=== PATIENT | female | born 1960 | race African-American/Black ===

== ENCOUNTER 2020-03-23 08:04 | Inpatient (IN) | payer OTHER ==
[~2020-03-23] VITALS: Ht 167.6 cm; Wt 115.2 kg
[2020-03-23] MEDS ORDERED: PROPOFOL 1000 MG/ISO-OSM 100 ML IV ONE (08:16)
[2020-03-23] MEDS ORDERED: PROPOFOL 1000 MG/ISO-OSM 100 ML IV PRN (08:30)
[2020-03-23] MEDS ORDERED: SODIUM CHLORIDE 0.9% 1,000 ML IV ONE ×5 (08:30→11:15)
[2020-03-23 08:51] LABS: APPEARANCE,URINE TURBID (CLEAR); GLUCOSE, URINE (UA) NEGATIVE (NEGATIVE); KETONES,URINE NEGATIVE (NEGATIVE); LEUKOCYTE ESTERASE ,URINE LARGE (NEGATIVE); NITRATE,URINE NEGATIVE (NEGATIVE); OCCULT BLOOD,URINE MODERATE (NEGATIVE); PROTEIN,URINE NEGATIVE (NEGATIVE); UROBILINOGEN,URINE 0.2 mg/dL (<=1.0)
[2020-03-23 08:51] LABS: ANION GAP 18 mmol/L (8-16); CALCIUM, TOTAL 9.1 mg/dL (8.8-10.5); CARBON DIOXIDE 21 mmol/L (22-29); CHLORIDE 95 mmol/L (98-107); CREATININE 4.83 mg/dL (0.60-1.30); GLOMERULAR FILTR. RATE CALC 11 mL/min (>60); GLUCOSE,RANDOM 336 mg/dL (70-110); HEMATOCRIT 25.8 % (36-46); HEMOGLOBIN 7.4 g/dL (12.0-16.0); MEAN CORPUSCULAR HEMOGLOBIN 23.8 pg (26.0-34.0); MEAN CORPUSCULAR HGB CONC 28.8 G/dL (31.0-37.0); MEAN CORPUSCULAR VOLUME 83 fL (80-100); PLATELET COUNT (AUTO) 309 K/uL (150-450); POTASSIUM 4.7 mmol/L (3.5-5.1); RED BLOOD CELL COUNT(AUTO) 3.13 MIL/uL (4.00-5.20); RED CELL DISTRIBUTION WIDTH 23.3 % (11.5-14.5); SODIUM SERUM 134 mmol/L (136-145); UREA NITROGEN, BLOOD 70 mg/dL (7-18)
[2020-03-23 08:53] LABS: INR 1.4 (0.9-1.1); PROTHROMBIN TIME 14.3 SEC (9.4-11.6)
[2020-03-23 08:56] LABS: AMPHET/METH SCREEN,URINE NEGATIVE (NEGATIVE); BARBITURATE SCREEN, URINE NEGATIVE (NEGATIVE); BENZODIAZEPINES SCREEN,URINE NEGATIVE (NEGATIVE); CANNABINOID SCREEN,URINE NEGATIVE (NEGATIVE); COCAINE SCREEN,URINE NEGATIVE (NEGATIVE); METHADONE SCREEN, URINE NEGATIVE (NEGATIVE); OPIATE SCREEN,URINE NEGATIVE (NEGATIVE)
[2020-03-23 08:58] LABS: ALBUMIN 1.2 g/dL (3.4-5.0); ALKALINE PHOSPHATASE 167 U/L (46-116); ASPARTATE AMINOTRANSFERASE 27 U/L (15-37); BILIRUBIN,TOTAL 0.4 mg/dL (0.1-1.0); LIPASE 16 U/L (73-393); TOTAL PROTEIN, SERUM 6.5 g/dL (6.4-8.2)
[2020-03-23 08:59] LABS: ACETAMINOPHEN < 2 mcg/mL (10-30); AMMONIA 25 umol/L (11-32); TROPONIN I < 0.02 ng/mL (0.00-0.05)
[2020-03-23 08:59] LABS: PHENCYCLIDINE SCREEN,URINE NEGATIVE (NEGATIVE)
[2020-03-23 09:07] LABS: BILIRUBIN,URINE PRELIM. POSITIVE (NEGATIVE)
[2020-03-23 09:14] LABS: SALICYLATE 1.9 mg/dL (2.8-20.0)
[2020-03-23 09:19] LABS: B-TYPE NATRIURETIC PEPTIDE 173 pg/mL (0-100)
[2020-03-23 09:19] LABS: BACTERIA,URINE Moderate /HPF (None Seen); YEAST,URINE Many /HPF (None Seen)
[2020-03-23 09:25] LABS: BAND NEUTROPHILS % (MANUAL) 21 % (0-5); LYMPHOCYTES % (MANUAL) 12 % (22-44); METAMYELOCYTES % 2 % (0-0); MONOCYTES % (MANUAL) 4 % (2-9); SEGMENTED NEUTROPHILS % 61 % (40-70)
[2020-03-23 09:30] LABS: ALANINE AMINOTRANSFERASE 10 U/L (12-78)
[2020-03-23] MEDS ORDERED: VANCOMYCIN HCL 1 GM/D5% WATER 200 ML IV ONE (09:30)
[2020-03-23 09:35] LABS: LACTIC ACID 13.3 mmol/L (0.4-2.0)
[2020-03-23] MEDS ORDERED: PIPERACILLIN/TAZO 3.375 GM/D5W 50 ML IV ONE (10:00)
[2020-03-23] MEDS ORDERED: NOREPINEPHRINE BITARTRATE 8 MG in DEXTROSE 5%-WATER 242 ML IV PRN (10:15)
[2020-03-23] MEDS: NOREPINEPHRINE 4 MG/D5%-WATER 250 ML IV PRN ×3 (11:08→22:06)
[2020-03-23] MEDS ORDERED: ROCURONIUM BROMIDE 10 MG/ML 5 ML VIAL ONE (11:08)
[2020-03-23] MEDS ORDERED: ONDANSETRON HCL 4 MG/2 ML VIAL IVP PRN (11:15)
[2020-03-23] MEDS ORDERED: MORPHINE SULFATE 2 MG/ML SYRINGE IVP PRN (11:15)
[2020-03-23] MEDS ORDERED: DEXTROSE 50%-WATER 25 GM/50 ML SYRINGE IVP PRN ×2 (11:15→20:15)
[2020-03-23] MEDS ORDERED: INSULIN LISPRO 100 UNITS/ML SQ PRN (11:15)
[2020-03-23 11:52] LABS: COVID AG,FIA SOURCE NASOPHARYNGEAL
[2020-03-23] MEDS ORDERED: VANCOMYCIN HCL 1 GM/D5% WATER 200 ML IV PRN (12:00)
[2020-03-23] MEDS ORDERED: CefTRIAXone SODIUM 2 GM in DEXTROSE 5%-WATER 50 ML IV SCH (12:00)
[2020-03-23] MEDS: FentaNYL CITRATE PF 500 MCG in DEXTROSE 5%-WATER 90 ML IV PRN ×2 (12:16→23:12)
[2020-03-23 12:28] LABS: INFLUENZA TYPE A NEGATIVE FOR TYPE A (NEGATIVE); INFLUENZA TYPE B NEGATIVE FOR TYPE B (NEGATIVE)
[2020-03-23] MEDS: MIDAZOLAM HCL 100 MG in DEXTROSE 5%-WATER 180 ML IV PRN (12:39)
[2020-03-23 12:55] LABS: BILIRUBIN,TOTAL 0.5 mg/dL (0.1-1.0); CALCIUM, TOTAL 7.8 mg/dL (8.8-10.5); CREATININE 4.1 mg/dL (0.60-1.30); MAGNESIUM 1.3 mg/dL (1.80-2.40); PHOSPHORUS 5.2 mg/dL (2.5-4.9); POTASSIUM 4.7 mmol/L (3.5-5.1); TOTAL PROTEIN, SERUM 5.5 g/dL (6.4-8.2)
[2020-03-23 12:57] LABS: ABG A-A DIFF O2 249.1 mmHg (10-20.0); ABG BASE EXCESS -1.7 mmol/L (-2.0-3.0); ABG CARBOXYHEMOGLOBIN 0.4 % (0.0-1.5); ABG HCO3 23.1 mmol/L (22.0-26.0); ABG METHEMOGLOBIN 0.2 % (0.0-1.5); ABG OXYGEN CONTENT 11.8 mL/dL (15.0-23.0); ABG OXYGEN SATURATION 99.7 % (95.0-98.0); ABG OXYHEMOGLOBIN 99.1 % (94.0-100.0); ABG PCO2 44 mmHg (35-45); ABG PH 7.354 (7.35-7.450); PO2, ARTERIAL BG 423.2 mmHg (79.0-87.0); TEMPERATURE, FAHRENHEIT, BG 96.4 FAHREN (96.0-98.6)
[2020-03-23 12:58] LABS: ABG TOTAL HEMOGLOBIN 7.6 G/dL (12.0-18.0); O2 DEVICE,BLOOD GAS VENTILATOR (ROOM AIR); PEEP,BG 5 cm H2O; SITE, BLOOD GAS RT BRACHIAL; SOURCE, BLOOD GAS ARTERIAL; VT, ABG 500 ml
[2020-03-23 12:59] LABS: SPONTANEOUS VT, BG 493 ml
[2020-03-23] MEDS: PANTOPRAZOLE SODIUM 40 MG/VIAL IVP SCH (13:16)
[2020-03-23] MEDS: DOXYCYCLINE HYCLATE 100 MG in DEXTROSE 5%-WATER 100 ML IV SCH (13:34)
[2020-03-23] MEDS ORDERED: INSULIN LISPRO 100 UNITS/ML SQ ONE ×2 (14:15→20:15)
[2020-03-23 16:00] VITALS: BP 108/62
[2020-03-23] MEDS ORDERED: LEVOFLOXACIN 750 MG/D5% WATER 150 ML IV ONE (17:15)
[2020-03-23] MEDS ORDERED: *CLINICAL-RX DOSING [ENTER DRUG IN COMMENTS] CLINICAL ONE (17:15)
[2020-03-23] MEDS ORDERED: PIPERACILLIN SODIUM/TAZOBACTAM 2.25 GM in DEXTROSE 5%-WATER 50 ML IV SCH (18:00)
[2020-03-23 18:35] LABS: GLUCOSE,POINT OF CARE 357 MG/DL (70-110)
[2020-03-23 19:14] LABS: HEMATOCRIT 25.4 % (36-46); HEMOGLOBIN 7.5 g/dL (12.0-16.0)
[2020-03-23 19:30] LABS: ALBUMIN 1.2 g/dL (3.4-5.0); BILIRUBIN,TOTAL 0.5 mg/dL (0.1-1.0); CALCIUM, TOTAL 8.3 mg/dL (8.8-10.5); CREATININE 4.25 mg/dL (0.60-1.30); MAGNESIUM 1.4 mg/dL (1.80-2.40); POTASSIUM 4.9 mmol/L (3.5-5.1); TOTAL PROTEIN, SERUM 6.5 g/dL (6.4-8.2)
[2020-03-23 20:00] VITALS: BP 111/63
[2020-03-23] MEDS: HEPARIN SODIUM,PORCINE 5,000 UNITS/ML VIAL SQ SCH (20:09)
[2020-03-23] MEDS: DOCUSATE SODIUM 100 MG CAPSULE PO SCH (20:10)
[2020-03-23] MEDS: MEROPENEM 1 GM in SODIUM CHLORIDE 0.9% 100 ML IV SCH (20:12)
[2020-03-23 21:26] LABS: ABG A-A DIFF O2 141.8 mmHg (10-20.0); ABG BASE EXCESS -0.2 mmol/L (-2.0-3.0); ABG CARBOXYHEMOGLOBIN 0.6 % (0.0-1.5); ABG HCO3 24.4 mmol/L (22.0-26.0); ABG METHEMOGLOBIN 0.3 % (0.0-1.5); ABG OXYGEN CONTENT 11.2 mL/dL (15.0-23.0); ABG OXYGEN SATURATION 99.6 % (95.0-98.0); ABG OXYHEMOGLOBIN 98.7 % (94.0-100.0); ABG PCO2 40 mmHg (35-45); ABG PH 7.403 (7.35-7.450); PO2, ARTERIAL BG 169.4 mmHg (79.0-87.0); SOURCE, BLOOD GAS ARTERIAL; TEMPERATURE, FAHRENHEIT, BG 98.6 FAHREN (96.0-98.6)
[2020-03-23 21:27] LABS: ABG TOTAL HEMOGLOBIN 7.8 G/dL (12.0-18.0)
[2020-03-23 21:28] LABS: PEEP,BG 5 cm H2O; SITE, BLOOD GAS LFT RADIAL; VT, ABG 500 ml
[2020-03-23 22:27] LABS: CREATININE,URINE RANDOM 206.6 mg/dL (30.0-125.0)
[2020-03-24] VITALS (13 sets, daily range): BP systolic 92–113; BP diastolic 51–62
[2020-03-24] MEDS: DOXYCYCLINE HYCLATE 100 MG in DEXTROSE 5%-WATER 100 ML IV SCH ×2 (00:01→12:03)
[2020-03-24] MEDS: INSULIN LISPRO 100 UNITS/ML SQ PRN ×4 (00:20→17:26)
[2020-03-24] MEDS ORDERED: NOREPINEPHRINE 4 MG/D5%-WATER 250 ML IV ONE (02:50)
[2020-03-24] MEDS: NOREPINEPHRINE 4 MG/D5%-WATER 250 ML IV PRN ×5 (03:08→22:34)
[2020-03-24 04:26] LABS: GLUCOSE,POINT OF CARE 320 MG/DL (70-110)
[2020-03-24] MEDS: ACETAMINOPHEN 325 MG TABLET PO PRN (05:40)
[2020-03-24 06:03] LABS: ALBUMIN 0.9 g/dL (3.4-5.0); BILIRUBIN,TOTAL 0.3 mg/dL (0.1-1.0); CALCIUM, TOTAL 8.2 mg/dL (8.8-10.5); CREATININE 3.99 mg/dL (0.60-1.30); MAGNESIUM 1.4 mg/dL (1.80-2.40); POTASSIUM 4.3 mmol/L (3.5-5.1)
[2020-03-24 06:10] LABS: BASOPHILS % (AUTO) 0.2 % (0.0-2.0); EOSINOPHILS % (AUTO) 0.8 % (1.0-6.0); HEMATOCRIT 22.9 % (36-46); LYMPHOCYTES % (AUTO) 4.2 % (22.0-44.0); MEAN CORPUSCULAR HEMOGLOBIN 23.7 pg (26.0-34.0); MEAN CORPUSCULAR HGB CONC 30.5 G/dL (31.0-37.0); MEAN CORPUSCULAR VOLUME 78 fL (80-100); MONOCYTES # (AUTO) 0.5 K/uL (0.1-1.0); MONOCYTES % (AUTO) 2.3 % (2.0-9.0); NEUTROPHILS # (AUTO) 20.9 K/uL (1.8-7.7); PLATELET COUNT (AUTO) 272 K/uL (150-450); RED BLOOD CELL COUNT(AUTO) 2.96 MIL/uL (4.00-5.20); RED CELL DISTRIBUTION WIDTH 23.1 % (11.5-14.5)
[2020-03-24 06:12] LABS: GLUCOSE,POINT OF CARE 346 MG/DL (70-110)
[2020-03-24 06:12] LABS: NEUTROPHILS % (AUTO) 92.5 % (40.0-70.0)
[2020-03-24] MEDS ORDERED: MAGNESIUM OXIDE 400 MG TABLET PO ONE (06:30)
[2020-03-24] MEDS: MEROPENEM 1 GM in SODIUM CHLORIDE 0.9% 100 ML IV SCH ×2 (06:31→21:16)
[2020-03-24 07:00] LABS: C-REACTIVE PROTEIN QUANT 38.89 mg/dL (0.00-0.30)
[2020-03-24] MEDS ORDERED: VANCOMYCIN HCL 1 GM/D5% WATER 200 ML IV ONE (08:00)
[2020-03-24] MEDS: INSULIN GLARGINE,HUM.REC.ANLOG 100 UNITS/ML SQ SCH (08:32)
[2020-03-24] MEDS: HEPARIN SODIUM,PORCINE 5,000 UNITS/ML VIAL SQ SCH ×2 (08:37→20:07)
[2020-03-24] MEDS: PANTOPRAZOLE SODIUM 40 MG/VIAL IVP SCH (08:37)
[2020-03-24] MEDS: DOCUSATE SODIUM 100 MG CAPSULE PO SCH ×2 (08:38→20:07)
[2020-03-24] MEDS ORDERED: WATER FOR INJECTION STERILE IV ONE (09:00)
[2020-03-24] MEDS ORDERED: MAGNESIUM SULFATE IV ONE (09:00)
[2020-03-24] MEDS: ALBUMIN HUMAN 25%-25GM/100ML 100 ML IV SCH ×2 (09:29→20:07)
[2020-03-24] MEDS ORDERED: SODIUM CHLORIDE 0.9% 250 ML IV ONE ×2 (09:35→15:02)
[2020-03-24] MEDS: FentaNYL CITRATE PF 500 MCG in DEXTROSE 5%-WATER 90 ML IV PRN ×3 (13:15→22:34)
[2020-03-24] MEDS ORDERED: MAGNESIUM SULFATE 3 GM in DEXTROSE 5%-WATER 100 ML IV ONE (14:30)
[2020-03-24] MEDS: MIDAZOLAM HCL 100 MG in DEXTROSE 5%-WATER 180 ML IV PRN (17:13)
[2020-03-24 17:46] LABS: GLUCOSE,POINT OF CARE 304 MG/DL (70-110)
[2020-03-24 17:46] LABS: GLUCOSE,POINT OF CARE 300 MG/DL (70-110)
[2020-03-24 17:46] LABS: GLUCOSE,POINT OF CARE 272 MG/DL (70-110)
[2020-03-25] MEDS: INSULIN LISPRO 100 UNITS/ML SQ PRN ×5 (00:07→20:00)
[2020-03-25 00:11] VITALS: BP 104/49
[2020-03-25 02:11] LABS: GLUCOSE,POINT OF CARE 355 MG/DL (70-110)
[2020-03-25] MEDS: FentaNYL CITRATE PF 500 MCG in DEXTROSE 5%-WATER 90 ML IV PRN ×2 (03:54→14:16)
[2020-03-25 04:04] VITALS: BP 99/53
[2020-03-25 05:35] LABS: GLUCOSE,POINT OF CARE 328 MG/DL (70-110)
[2020-03-25] MEDS: NOREPINEPHRINE 4 MG/D5%-WATER 250 ML IV PRN ×4 (05:41→22:14)
[2020-03-25 06:25] LABS: HEMATOCRIT 25.4 % (36-46); HEMOGLOBIN 7.8 g/dL (12.0-16.0); MEAN CORPUSCULAR HEMOGLOBIN 24.1 pg (26.0-34.0); MEAN CORPUSCULAR HGB CONC 30.7 G/dL (31.0-37.0); MEAN CORPUSCULAR VOLUME 79 fL (80-100); PLATELET COUNT (AUTO) 195 K/uL (150-450); RED BLOOD CELL COUNT(AUTO) 3.24 MIL/uL (4.00-5.20); RED CELL DISTRIBUTION WIDTH 21.5 % (11.5-14.5)
[2020-03-25 07:28] LABS: ALBUMIN 1.6 g/dL (3.4-5.0); BILIRUBIN,TOTAL 0.5 mg/dL (0.1-1.0); CALCIUM, TOTAL 8.7 mg/dL (8.8-10.5); CREATININE 3.71 mg/dL (0.60-1.30); POTASSIUM 3.9 mmol/L (3.5-5.1); TOTAL PROTEIN, SERUM 5.8 g/dL (6.4-8.2)
[2020-03-25 07:57] LABS: GLUCOSE,POINT OF CARE 325 MG/DL (70-110)
[2020-03-25 08:00] VITALS: BP 102/56
[2020-03-25 08:01] LABS: BAND NEUTROPHILS % (MANUAL) 20 % (0-5); EOSINOPHILS % (MANUAL) 2 % (1-6); LYMPHOCYTES % (MANUAL) 5 % (22-44); METAMYELOCYTES % 2 % (0-0); MONOCYTES % (MANUAL) 4 % (2-9); SEGMENTED NEUTROPHILS % 67 % (40-70)
[2020-03-25 08:03] LABS: C-REACTIVE PROTEIN QUANT 29.58 mg/dL (0.00-0.30)
[2020-03-25] MEDS: ALBUMIN HUMAN 25%-25GM/100ML 100 ML IV SCH ×2 (08:04→20:01)
[2020-03-25] MEDS: INSULIN GLARGINE,HUM.REC.ANLOG 100 UNITS/ML SQ SCH ×2 (08:04→20:00)
[2020-03-25] MEDS: HEPARIN SODIUM,PORCINE 5,000 UNITS/ML VIAL SQ SCH ×2 (08:09→20:00)
[2020-03-25] MEDS: PANTOPRAZOLE SODIUM 40 MG/VIAL IVP SCH (08:09)
[2020-03-25 08:36] LABS: MAGNESIUM 1.8 mg/dL (1.80-2.40)
[2020-03-25] MEDS: MEROPENEM 1 GM in SODIUM CHLORIDE 0.9% 100 ML IV SCH ×2 (09:24→22:11)
[2020-03-25] MEDS: DOCUSATE SODIUM 100 MG CAPSULE PO SCH ×2 (09:24→20:00)
[2020-03-25 12:00] VITALS: BP 135/58
[2020-03-25] MEDS: ACETAMINOPHEN 325 MG TABLET PO PRN ×2 (15:36→19:58)
[2020-03-25 16:00] VITALS: BP 97/51
[2020-03-25 16:48] LABS: ABG A-A DIFF O2 100.9 mmHg (10-20.0); ABG BASE EXCESS 1.4 mmol/L (-2.0-3.0); ABG CARBOXYHEMOGLOBIN 0.7 % (0.0-1.5); ABG HCO3 25.7 mmol/L (22.0-26.0); ABG METHEMOGLOBIN 0.3 % (0.0-1.5); ABG OXYGEN CONTENT 11.7 mL/dL (15.0-23.0); ABG OXYGEN SATURATION 97.3 % (95.0-98.0); ABG OXYHEMOGLOBIN 96.3 % (94.0-100.0); ABG PCO2 43 mmHg (35-45); ABG TOTAL HEMOGLOBIN 8.5 G/dL (12.0-18.0); PO2, ARTERIAL BG 97.5 mmHg (79.0-87.0); SOURCE, BLOOD GAS ARTERIAL; TEMPERATURE, FAHRENHEIT, BG 99.8 FAHREN (96.0-98.6)
[2020-03-25 16:50] LABS: O2 DEVICE,BLOOD GAS VENTILATOR (ROOM AIR); PEEP,BG 5 cm H2O; SITE, BLOOD GAS LFT RADIAL; VT, ABG 500 ml
[2020-03-25 16:51] LABS: SPONTANEOUS VT, BG 499 ml
[2020-03-25] MEDS ORDERED: LEVOFLOXACIN 500 MG/D5% WATER 100 ML IV SCH (18:00)
[2020-03-25 18:22] LABS: GLUCOSE,POINT OF CARE 302 MG/DL (70-110)
[2020-03-25 18:22] LABS: GLUCOSE,POINT OF CARE 309 MG/DL (70-110)
[2020-03-25 20:00] VITALS: BP 84/52
[2020-03-26 00:08] VITALS: BP 135/58
[2020-03-26] MEDS: INSULIN LISPRO 100 UNITS/ML SQ PRN ×4 (00:14→17:51)
[2020-03-26 00:42] LABS: GLUCOSE,POINT OF CARE 257 MG/DL (70-110)
[2020-03-26 00:42] LABS: GLUCOSE,POINT OF CARE 321 MG/DL (70-110)
[2020-03-26 04:00] VITALS: BP 122/66
[2020-03-26] MEDS: NOREPINEPHRINE 4 MG/D5%-WATER 250 ML IV PRN ×2 (05:25→12:12)
[2020-03-26] MEDS: FentaNYL CITRATE PF 500 MCG in DEXTROSE 5%-WATER 90 ML IV PRN ×3 (05:26→20:13)
[2020-03-26 05:35] LABS: BASOPHILS % (AUTO) 0.6 % (0.0-2.0); EOSINOPHILS % (AUTO) 1.4 % (1.0-6.0); HEMATOCRIT 24.9 % (36-46); HEMOGLOBIN 7.8 g/dL (12.0-16.0); LYMPHOCYTES # (AUTO) 0.9 K/uL (1.0-4.8); LYMPHOCYTES % (AUTO) 3.9 % (22.0-44.0); MEAN CORPUSCULAR HEMOGLOBIN 24.5 pg (26.0-34.0); MEAN CORPUSCULAR HGB CONC 31.4 G/dL (31.0-37.0); MEAN CORPUSCULAR VOLUME 78 fL (80-100); MONOCYTES # (AUTO) 0.7 K/uL (0.1-1.0); MONOCYTES % (AUTO) 2.9 % (2.0-9.0); PLATELET COUNT (AUTO) 170 K/uL (150-450); RED CELL DISTRIBUTION WIDTH 21.8 % (11.5-14.5)
[2020-03-26 05:49] LABS: NEUTROPHILS % (AUTO) 91.2 % (40.0-70.0)
[2020-03-26 05:51] LABS: CALCIUM, TOTAL 8.3 mg/dL (8.8-10.5); CREATININE 3.42 mg/dL (0.60-1.30); POTASSIUM 4.1 mmol/L (3.5-5.1)
[2020-03-26] MEDS: VANCOMYCIN HCL 1.25 GM in DEXTROSE 5%-WATER 250 ML IV SCH (07:48)
[2020-03-26] MEDS: PANTOPRAZOLE SODIUM 40 MG/VIAL IVP SCH (07:49)
[2020-03-26] MEDS: DOCUSATE SODIUM 100 MG CAPSULE PO SCH ×2 (07:49→20:01)
[2020-03-26] MEDS: HEPARIN SODIUM,PORCINE 5,000 UNITS/ML VIAL SQ SCH ×2 (07:49→20:01)
[2020-03-26] MEDS: ALBUMIN HUMAN 25%-25GM/100ML 100 ML IV SCH ×2 (07:50→20:01)
[2020-03-26] MEDS: INSULIN GLARGINE,HUM.REC.ANLOG 100 UNITS/ML SQ SCH ×2 (07:55→20:13)
[2020-03-26 08:00] VITALS: BP 91/50
[2020-03-26 08:20] LABS: GLUCOSE,POINT OF CARE 272 MG/DL (70-110)
[2020-03-26] MEDS: MEROPENEM 1 GM in SODIUM CHLORIDE 0.9% 100 ML IV SCH ×2 (10:27→21:13)
[2020-03-26 12:00] VITALS: BP 133/56
[2020-03-26 13:28] LABS: GLUCOSE,POINT OF CARE 287 MG/DL (70-110)
[2020-03-26] MEDS ORDERED: SODIUM CHLORIDE 0.9% 250 ML IV ONE (15:09)
[2020-03-26 16:00] VITALS: BP 102/47
[2020-03-26 20:00] VITALS: BP 100/56
[2020-03-26 22:49] LABS: GLUCOSE,POINT OF CARE 209 MG/DL (70-110)
[2020-03-26 22:50] LABS: GLUCOSE,POINT OF CARE 221 MG/DL (70-110)
[2020-03-27] VITALS: BP 125/55
[2020-03-27] MEDS: NOREPINEPHRINE 4 MG/D5%-WATER 250 ML IV PRN (00:15)
[2020-03-27] MEDS: INSULIN LISPRO 100 UNITS/ML SQ PRN ×4 (00:18→18:28)
[2020-03-27 02:54] LABS: GLUCOSE,POINT OF CARE 201 MG/DL (70-110)
[2020-03-27 04:00] VITALS: BP 99/56
[2020-03-27] MEDS: FentaNYL CITRATE PF 500 MCG in DEXTROSE 5%-WATER 90 ML IV PRN ×3 (04:29→22:17)
[2020-03-27 05:28] LABS: BASOPHILS % (AUTO) 0.4 % (0.0-2.0); EOSINOPHILS % (AUTO) 1.2 % (1.0-6.0); HEMATOCRIT 22.5 % (36-46); HEMOGLOBIN 7.3 g/dL (12.0-16.0); LYMPHOCYTES # (AUTO) 0.8 K/uL (1.0-4.8); LYMPHOCYTES % (AUTO) 3.9 % (22.0-44.0); MEAN CORPUSCULAR HEMOGLOBIN 25.6 pg (26.0-34.0); MEAN CORPUSCULAR HGB CONC 32.6 G/dL (31.0-37.0); MEAN CORPUSCULAR VOLUME 79 fL (80-100); MONOCYTES # (AUTO) 0.7 K/uL (0.1-1.0); MONOCYTES % (AUTO) 3.3 % (2.0-9.0); NEUTROPHILS # (AUTO) 19.2 K/uL (1.8-7.7); PLATELET COUNT (AUTO) 139 K/uL (150-450); RED BLOOD CELL COUNT(AUTO) 2.86 MIL/uL (4.00-5.20); RED CELL DISTRIBUTION WIDTH 22.1 % (11.5-14.5)
[2020-03-27 05:31] LABS: NEUTROPHILS % (AUTO) 91.2 % (40.0-70.0)
[2020-03-27 05:40] LABS: ALBUMIN 2.3 g/dL (3.4-5.0); BILIRUBIN,TOTAL 0.7 mg/dL (0.1-1.0); C-REACTIVE PROTEIN QUANT 22.03 mg/dL (0.00-0.30); CALCIUM, TOTAL 8.4 mg/dL (8.8-10.5); CREATININE 3.25 mg/dL (0.60-1.30); TOTAL PROTEIN, SERUM 5.9 g/dL (6.4-8.2)
[2020-03-27 06:28] LABS: GLUCOSE,POINT OF CARE 207 MG/DL (70-110)
[2020-03-27 08:00] VITALS: BP 108/57
[2020-03-27] MEDS: DOCUSATE SODIUM 100 MG CAPSULE PO SCH ×2 (08:31→21:05)
[2020-03-27] MEDS: HEPARIN SODIUM,PORCINE 5,000 UNITS/ML VIAL SQ SCH ×2 (08:32→21:06)
[2020-03-27] MEDS: ALBUMIN HUMAN 25%-25GM/100ML 100 ML IV SCH ×2 (08:32→21:05)
[2020-03-27] MEDS: PANTOPRAZOLE SODIUM 40 MG/VIAL IVP SCH (08:32)
[2020-03-27] MEDS: INSULIN GLARGINE,HUM.REC.ANLOG 100 UNITS/ML SQ SCH ×2 (08:35→21:12)
[2020-03-27 09:21] LABS: ORGANISM ID Not indicated.; S PNEUMO SOURCE Urine; STREP PNEUMONIAE AG URINE Negative (Negative); STREP.PNEUMO BODY FLUID CULT. Not indicated.
[2020-03-27] MEDS: MEROPENEM 1 GM in SODIUM CHLORIDE 0.9% 100 ML IV SCH ×2 (10:50→21:04)
[2020-03-27 12:00] VITALS: BP 98/59
[2020-03-27 12:13] LABS: LEGIONELLA PNEUMO AG URINE Positive (Negative)
[2020-03-27 13:39] LABS: GLUCOSE,POINT OF CARE 165 MG/DL (70-110)
[2020-03-27 16:00] VITALS: BP 100/54
[2020-03-27] MEDS: MIDAZOLAM HCL 100 MG in DEXTROSE 5%-WATER 180 ML IV PRN (16:50)
[2020-03-27] MEDS ORDERED: LEVOFLOXACIN 500 MG/D5% WATER 100 ML IV SCH (17:00)
[2020-03-27 18:37] LABS: GLUCOSE,POINT OF CARE 143 MG/DL (70-110)
[2020-03-27 20:00] VITALS: BP 95/52
[2020-03-27 22:12] LABS: GLUCOSE,POINT OF CARE 129 MG/DL (70-110)
[2020-03-27] MEDS ORDERED: SODIUM CHLORIDE 0.9% 250 ML IV ONE (22:16)
[2020-03-28] VITALS: BP 90/46
[2020-03-28] MEDS: INSULIN LISPRO 100 UNITS/ML SQ PRN ×3 (00:15→13:08)
[2020-03-28 04:00] VITALS: BP 94/53
[2020-03-28] MEDS: FentaNYL CITRATE PF 500 MCG in DEXTROSE 5%-WATER 90 ML IV PRN ×2 (04:03→12:08)
[2020-03-28 04:09] LABS: GLUCOSE,POINT OF CARE 135 MG/DL (70-110)
[2020-03-28 05:57] LABS: BASOPHILS % (AUTO) 0.5 % (0.0-2.0); EOSINOPHILS % (AUTO) 1.1 % (1.0-6.0); LYMPHOCYTES # (AUTO) 0.9 K/uL (1.0-4.8); LYMPHOCYTES % (AUTO) 5.1 % (22.0-44.0); MEAN CORPUSCULAR HEMOGLOBIN 24.9 pg (26.0-34.0); MEAN CORPUSCULAR HGB CONC 32.1 G/dL (31.0-37.0); MEAN CORPUSCULAR VOLUME 78 fL (80-100); MONOCYTES # (AUTO) 0.7 K/uL (0.1-1.0); MONOCYTES % (AUTO) 3.8 % (2.0-9.0); NEUTROPHILS # (AUTO) 15.8 K/uL (1.8-7.7); RED BLOOD CELL COUNT(AUTO) 2.71 MIL/uL (4.00-5.20); RED CELL DISTRIBUTION WIDTH 22.4 % (11.5-14.5)
[2020-03-28 06:11] LABS: CALCIUM, TOTAL 8.4 mg/dL (8.8-10.5); CREATININE 3.37 mg/dL (0.60-1.30); POTASSIUM 3.9 mmol/L (3.5-5.1); VANCOMYCIN,RANDOM 16.2 mcg/mL (25.0-50.0)
[2020-03-28 06:25] LABS: HEMOGLOBIN 6.8 g/dL (12.0-16.0); NEUTROPHILS % (AUTO) 89.5 % (40.0-70.0)
[2020-03-28 06:58] LABS: PLATELET COUNT (AUTO) 111 K/uL (150-450)
[2020-03-28 07:07] LABS: GLUCOSE,POINT OF CARE 122 MG/DL (70-110)
[2020-03-28] MEDS ORDERED: SODIUM CHLORIDE 0.9% 250 ML IV ONE (07:53)
[2020-03-28 08:00] VITALS: BP 93/49
[2020-03-28] MEDS: VANCOMYCIN HCL 1.25 GM in DEXTROSE 5%-WATER 250 ML IV SCH (08:18)
[2020-03-28] MEDS: DOCUSATE SODIUM 100 MG CAPSULE PO SCH (09:00)
[2020-03-28] MEDS: HEPARIN SODIUM,PORCINE 5,000 UNITS/ML VIAL SQ SCH (09:19)
[2020-03-28] MEDS: PANTOPRAZOLE SODIUM 40 MG/VIAL IVP SCH (09:19)
[2020-03-28] MEDS: INSULIN GLARGINE,HUM.REC.ANLOG 100 UNITS/ML SQ SCH (09:20)
[2020-03-28] MEDS: ALBUMIN HUMAN 25%-25GM/100ML 100 ML IV SCH (09:27)
[2020-03-28] MEDS: MEROPENEM 1 GM in SODIUM CHLORIDE 0.9% 100 ML IV SCH (10:33)
[2020-03-28 12:00] VITALS: BP 96/50
[2020-03-28 13:08] LABS: GLUCOSE,POINT OF CARE 124 MG/DL (70-110)
[2020-03-28 16:00] VITALS: BP 105/44
[2020-03-28 16:42] LABS: ABG CARBOXYHEMOGLOBIN 0.9 % (0.0-1.5); ABG HCO3 23.9 mmol/L (22.0-26.0); ABG METHEMOGLOBIN 0.3 % (0.0-1.5); ABG OXYGEN CONTENT 12.2 mL/dL (15.0-23.0); ABG OXYGEN SATURATION 93.4 % (95.0-98.0); ABG OXYHEMOGLOBIN 92.3 % (94.0-100.0); ABG PCO2 63 mmHg (35-45); ABG PH 7.255 (7.35-7.450); ABG TOTAL HEMOGLOBIN 9.3 G/dL (12.0-18.0); PO2, ARTERIAL BG 70.8 mmHg (79.0-87.0); SOURCE, BLOOD GAS ARTERIAL; TEMPERATURE, FAHRENHEIT, BG 96.8 FAHREN (96.0-98.6)
[2020-03-28 16:47] LABS: O2 DEVICE,BLOOD GAS VENTILATOR (ROOM AIR); SITE, BLOOD GAS RT RADIAL
[2020-03-28 16:48] LABS: PEEP,BG 5 cm H2O
[2020-03-28 16:49] LABS: VENT MODE, BG SPONTANEOUS (ROOM AIR)
[2020-03-28 16:50] LABS: PRESSURE SUPPORT, BG 10 cm H2O; SPONTANEOUS VT, BG 435 ml; VT, ABG 500 ml
[2020-03-28 18:56] LABS: GLUCOSE,POINT OF CARE 111 MG/DL (70-110)
[2020-03-28] MEDS ORDERED: MUPIROCIN CALCIUM 2% 22 GM OINTMENT NASAL SCH (21:00)
== END 2020-03-28 18:44 | disposition short-term general hospital (02) | DRG 870 ==
LOC: EMS 08:05 → ICU 11:02
PROVIDERS: ADMIT Internal Medicine; ATTEND Internal Medicine
PROC: 5A1955Z Respiratory Ventilation, Greater than 96 Consecutive Hours (ICD-10-PCS; principal; 2020-03-23)
PROC: 0BH17EZ Insertion of Endotracheal Airway into Trachea, Via Natural or Artificial Opening (ICD-10-PCS; 2020-03-23)
PROC: 06HY33Z Insertion of Infusion Device into Lower Vein, Percutaneous Approach (ICD-10-PCS; 2020-03-23)
PROC: B54CZZA Ultrasonography of Left Lower Extremity Veins, Guidance (ICD-10-PCS; 2020-03-23)
PROC: 30233N1 Transfusion of Nonautologous Red Blood Cells into Peripheral Vein, Percutaneous Approach (ICD-10-PCS; 2020-03-24)
DX: A41.9 Sepsis, unspecified organism (principal); J96.00 Acute respiratory failure, unspecified whether with hypoxia or hypercapnia; R65.21 Severe sepsis with septic shock; E43 Unspecified severe protein-calorie malnutrition; J18.9 Pneumonia, unspecified organism; N17.9 Acute kidney failure, unspecified; E87.2 Acidosis; C16.9 Malignant neoplasm of stomach, unspecified; J91.0 Malignant pleural effusion; E11.52 Type 2 diabetes mellitus with diabetic peripheral angiopathy with gangrene; I96 Gangrene, not elsewhere classified; N39.0 Urinary tract infection, site not specified; D68.59 Other primary thrombophilia; Z68.41 Body mass index [BMI] 40.0-44.9, adult; Z99.11 Dependence on respirator [ventilator] status; E87.1 Hypo-osmolality and hyponatremia; D64.9 Anemia, unspecified; E11.22 Type 2 diabetes mellitus with diabetic chronic kidney disease; N18.9 Chronic kidney disease, unspecified; E83.42 Hypomagnesemia; E11.65 Type 2 diabetes mellitus with hyperglycemia; Z79.4 Long term (current) use of insulin; Z92.21 Personal history of antineoplastic chemotherapy; E66.01 Morbid (severe) obesity due to excess calories; Z66 Do not resuscitate; Z85.028 Personal history of other malignant neoplasm of stomach; E88.09 Other disorders of plasma-protein metabolism, not elsewhere classified; Z20.828 Contact with and (suspected) exposure to other viral communicable diseases
CPT/HCPCS: 31500; 36556; 36600; 51701; 70450; 71250; 72192; 74150; 76770; 82570; 82728; 82805; 82948; 83605; 83735; 84100; 84156; 84300; 84540; 85014; 85018; 85379; 86140; 86850; 86900; 86901; 86923; 87040; 87070; 87081; 87086; 87106; 87147; 87186; 87205; 87426; 87449; 87804; 87899; 93005; 93306; 93970; 94002; 94003; 99291; C9113; G0378; G0480; G0481; J0696; J1644; J1815; J1956; J2185; J2250; J2543; J2704; J3010; J3370; J3475; J3490; J7050; J7060; P9016; P9046; 36415-L1; 36415-TC; 71045-TC; 80202-TC; U0003-CS